=== PATIENT | male | born 1940 | race African-American/Black ===

== ENCOUNTER → 2017-01-30 | Day surgery (SDC) | payer MEDICARE, MEDICAID ==
[~2017-01-30] MED LIST: AMLO1TAB15 PO; ATOR20TA58 PO; IV RINGERS,LACTATED 1000ML 1,000 ML IV SCH; LORA10TA3 PO; METF500T4 PO; PROPOFOL 40 ML IV ONE; TAMS0.4C2 PO
--- NOTE | 2017-01-30 08:51 | PDOC1 ---
HISTORY & PHYSICAL H&P Connor Casas 1940 12/22/2016 11:00 AM 09/17 [place] [facility], [facility] OUR PATIENTS COME FIRST [address] [place] [address] Ph. [phone] Patient: Connor Casas Date of : 1940 Date: 12/22/2016 11:00 AM Visit Type: Consult This 76 year old male presents for H/o colorectal polyp. History of Present Illness: 1. H/o colorectal polyp Prior screening: colonoscopy. Risk Factors: h/o colon polyp. Pertinent negatives include abdominal pain, change in bowel habits, change in stool caliber, constipation, decreased appetite, diarrhea, melena, nausea, rectal bleeding, vomiting, weight gain and weight loss. Additional information: No family history of colon cancer, No family history of Crohn's/colitis, No NSAID/ ASA use and Patient had 3 adenomatous polyp removed 4 yrs ago. INTAKE COMMENTS: Intake Comments: Nurse Note: the pt is here today to schedule a repeat colonoscopy due to polyps in 2012. PROBLEM LIST: Problem Description Onset Date Screening status 01/03/2013 Type 2 diabetes mellitus 05/12/2014 Acute bacterial sinusitis 08/02/2015 BPH (benign prostatic hyperplasia) 09/22/2014 Colon cancer screening 09/22/2014 Impotence of organic origin 01/31/2013 Prostate finding 11/15/2012 Essential hypertension 11/15/2012 Hyperlipidemia 11/15/2012 assisted current use of non-steroidal anti-inflammatories (NSAID) 10/05/2015 Polyarthralgia 10/05/2015 Primary osteoarthritis of right hand 10/05/2015 PAST MEDICAL/SURGICAL HISTORY (Detailed) Disease/disorder Onset Date Management Date Comments Colonic polyps 02/06/2013 colonoscopy with biopsy 02/06/2013 Diabetes Diverticulosis 02/06/2013 Hypertension Internal hemorrhoids 02/06/2013 DIAGNOSTICS HISTORY: Test Ordered Interpretation Result completed COLONOSCOPY AND BIOPSY 01/14/2013 Imp: Colonic polyps, x3, (bx). Diverticulosis. Internal hemorrhoids. BX: 02/06/2013 Test Ordered Ordering Comments Modifier COLONOSCOPY AND BIOPSY 01/14/2013 Medications (Active): Started Medication Directions Instruction Stopped 11/14/2016 atorvastatin 40 mg tablet TAKE 1 TABLET BY MOUTH EVERY DAY 11/14/2016 Exforge HCT 5 mg-160 mg-12.5 mg tablet TAKE 1 TABLET BY MOUTH EVERY DAY 11/14/2016 Flomax 0.4 mg capsule take 1 capsule by oral route every day 1/2 hour following the same meal each day 08/15/2016 loratadine 10 mg tablet take 1 tablet by oral route every day 11/14/2016 metformin 500 mg tablet TAKE 1 TABLET BY MOUTH 2 TIMES EVERY DAY WITH MORNING AND EVENING MEALS 11/14/2016 Mobic 15 mg tablet take 1 tablet by oral route every day 06/19/2016 Nasonex 50 mcg/actuation [place] spray 2 spray by intranasal route every day in each nostril Allergies: Ingredient Reaction Medication Name Comment MORPHINE Rash REVIEW OF SYSTEMS System Neg/Pos Details Constitutional Negative Chills, fever, malaise, weight gain and weight loss. ENMT Negative Sore throat. Eyes Negative Double vision. Respiratory Negative Dyspnea and wheezing. Cardio Negative Chest pain and irregular heartbeat/palpitations. GI Positive See HPI. GI Negative Abdominal pain, change in bowel habits, change in stool caliber, constipation, decreased appetite, diarrhea, melena, nausea, see HPI, rectal bleeding and vomiting. Negative Dysuria and hematuria. Endocrine Negative Cold intolerance and heat intolerance. Psych Negative Anxiety. Integumentary Negative Hives and rash. MS Negative Joint pain. Dayo/Lymph Negative Easy bleeding and easy bruising. Allergic/Immuno Negative Food allergies. VITAL SIGNS Time BP mm/Hg Pulse /min Resp /min Temp F Ht ft Ht in Ht cm Wt lb Wt kg BMI kg/ m2 BSA m2 O2 Sat% 10:58 AM 136/80 78 97.6 5.0 6.00 167.64 183.80 83.370 29.67 1.97 98 Time Measured by 10:58 AM [facility] PHYSICAL EXAM: Exam Findings Details Constitutional Normal Well developed. Eyes Normal Conjunctiva - Right: Normal, Left: Normal. Sclera - Right: Normal, Left: Normal. Nasopharynx Normal Lips/teeth/gums - Normal. Neck Exam Normal Inspection - Normal. Thyroid gland - Normal. Respiratory Normal Inspection - Normal. Auscultation - Normal. Cardiovascular Normal Regular rate and rhythm. No murmurs, gallops, or rubs. Vascular Normal Pulses - Carotids: Normal, Femoral: Normal, Dorsalis pedis: Normal. Abdomen Normal Inspection - Normal. Anterior palpation - No guarding. No abdominal tenderness. No hepatic enlargement. No splenic enlargement. No hernia. No ascites. Skin Normal Inspection - Normal. Extremity Normal No edema. Psychiatric * Oriented to time, place, person and situation. Psychiatric Normal Appropriate mood and effect. The patient was checked out at 11:46 AM by Apoorva Oshea. Assessment/Plan # Detail Type Description 1. Assessment History of colon polyps (Z86.010). Patient Plan schedule colonoscopy at Plan Orders Further diagnostic evaluations ordered today include(s) Colonoscopy to be performed today. He is to schedule a follow-up visit with Billy May MD upon completion of work-up Electronically signed by: Billy May MD 12/22/2016 12:00 PM Document generated by: Billy May 12/22/2016 11:59 AM Scott Hsieh MD, Family Practice; Redd Dixon MD Internal Medicine; Miguel A Jim MD, Internal Medicine; Rishi May MD Internal Medicine; Billy May MD, Gastroenterology; Javier Gardner MD, Rheumatology, S. Kevin Hernández, Physical Medicine/Rehab JLucero Finn APRN ------ 01/30/2017 Patient seen and examined. No change in H&P. BILLY MAY MD January 30, 2017 08:51
--- NOTE | 2017-01-30 09:31 | PDOC4 ---
GI OP Report - Dr. Pina Date/Time DATE: 01/30/17 TIME: 09:29 Attending Physician Billy Pina MD Referring Physician Indications Personal history of colonic polyps Pre-Op See the Anesthesia note for documentation of the administered medications Procedures Colonoscopy+ polypectomy Findings - Three 5 to 10 mm polyps at the hepatic flexure. Resected and retrieved. - Diverticulosis in the sigmoid colon. - The examination was otherwise normal on direct and retroflexion views. Plan - Discharge patient to home. - Patient has a contact number available for emergencies. The signs and symptoms of potential delayed complications were discussed with the patient. Return to normal activities tomorrow. Written discharge instructions were provided to the patient. - Resume regular diet. - Continue present medications. - Await pathology results. - Repeat colonoscopy in 3 - 5 years for surveillance based on pathology results. - Return to my office in 2 weeks. BILLY PINA MD January 30, 2017 09:31
[2017-01-30 09:51] VITALS: BP 139/76
--- NOTE | 2017-02-01 13:27 | PATHOLOGY ---
PATHOLOGY REPORT * * * * * * * * FINAL DIAGNOSIS: Colon biopsies, hepatic flexure polyp:- Tubular adenoma. - Inflamed hyperplastic polyp showing active chronic inflammation with increased eosinophils. COMMENT: Sections of the hepatic flexure biopsies reveal two segments of tubular adenoma and a single segment of inflamed hyperplastic polyp showing active chronic inflammation with increased eosinophils. There is no high grade dysplasia or evidence of malignancy. (JPM:csd; d/t: 02/01/2017) REPORT ELECTRONICALLY SIGNED BY: Juancarlos Cerda M.D. DATE/TIME: 02/01/2017 13:26 * * * * * * * * GROSS PATHOLOGY: Received in formalin labeled "Connor Casas, hepatic flexure polyp," are 3 segments of good soft tissue measuring 1.4 x 0.4 x 0.3 cm in aggregate dimensions and ranging from 0.3 to 0.5 cm in maximum dimension. The specimen is submitted entirely in cassette A1. (DEVIN; 01/31/2017) INITIAL CPT CODE(S): A; 98709 Professional services performed [place] [facility] [place] [address] Technical services performed by [facility] at [address] [place] [address]. SPECIMEN(S) RECEIVED: A.Hepatic flexure polyp CLINICAL HISTORY: History of colon polyps PATIENT: CONNOR CASAS /AGE: 4 1940 (Age: 76) PATIENT #: [id number] ALT CASE #: SPECIMEN COLLECTION DATE: 01/30/2017 SPECIMEN RECEIVED DATE: 01/30/2017 [facility] - [address] [place] [address] - PHONE: [phone] * * * END OF REPORT * * *
== END | disposition home or self-care (01) ==
LOC: ENDOS 07:53
PROVIDERS: ATTEND Internal Medicine Gastroenterology
DX: D12.3 Benign neoplasm of transverse colon (principal); K57.30 Diverticulosis of large intestine without perforation or abscess without bleeding; E78.00 Pure hypercholesterolemia, unspecified; I10 Essential (primary) hypertension; E11.9 Type 2 diabetes mellitus without complications; Z87.39 Personal history of other diseases of the musculoskeletal system and connective tissue; Z86.39 Personal history of other endocrine, nutritional and metabolic disease
CPT/HCPCS: 45385; J2704; 88305

== ENCOUNTER → 2017-03-09 | Outpatient (CLI) | payer MEDICARE, MEDICAID ==
[2017-01-30 09:51] VITALS: BP 139/76
[~2017-03-09] MED LIST changes: +HYDROmorphone 2 MG/ML VIAL IV PRN; +LIDOCAINE 1% 1 ML SYRINGE. ID PRN; +MORPHINE SULFATE 2 MG/ML DISP.SYRIN. IV PRN; +ONDANSETRON PF 4 MG/2 ML VIAL. IV PRN; +PROCHLORPERAZINE 10 MG/2 ML VIAL. IV PRN; -PROPOFOL 40 ML IV ONE; +fentaNYL PF VIAL 100 MCG/2 ML VIAL IV PRN
--- NOTE | 2017-03-09 14:51 | RAD ---
MR CERVICAL SPINE HISTORY: NO PRIORS..PT C/O CHRONIC NECK PAIN WITH OLD NECK INJURY... Technique: Sagittal T2, sagittal STIR, sagittal T1, and axial gradient echo imaging was obtained of the cervical spine. FINDINGS: Detail is degraded by motion artifact. There is reversal of upper cervical lordosis. There is degenerative disc disease at most levels of the cervical spine. There is no gross cord signal abnormality. Visualized soft tissues of the neck are within normal limits for somewhat obscured by motion. At C2-3 there is a central discussed by complex but no mass effect upon the cord. At C3-4 there is advanced disc height loss and retrolisthesis. A disc osteophyte complex causes moderate mass effect upon the cord. There is moderate bilateral foraminal stenosis from facet and uncovertebral hypertrophy. At C4-5 there is advanced disc height loss and retrolisthesis. A disc osteophyte complex is also present and causes severe mass effect upon the cord. There is moderate bilateral foraminal stenosis from facet and uncovertebral hypertrophy. At C5-6 there is advanced disc height loss and retrolisthesis with a disc osteophyte complex that causes severe mass effect upon the cord. There is also severe bilateral foraminal stenosis from facet and uncovertebral hypertrophy. At C6-C7 there is moderate disc height loss and a broad-based disc osteophyte complex causing mild mass effect upon the cord. There is also moderate bilateral foraminal stenosis from facet and uncovertebral hypertrophy. At C7-T1 there is no spinal stenosis. IMPRESSION: There is moderate or severe mass effect upon the cervical cord from the level of C3-4 through C5-C6. Neural foraminal stenosis is noted at all levels. Details as above. Electronically signed by: Galileo Lugo MD (03/09/2017 2:47 PM)
== END | disposition home or self-care (01) ==
LOC: MRI 12:37
PROVIDERS: ATTEND Physical Medicine & Rehabilitation
DX: M48.02 Spinal stenosis, cervical region (principal); M25.78 Osteophyte, vertebrae
CPT/HCPCS: 72141

== ENCOUNTER → 2017-08-03 | Outpatient (CLI) | payer MEDICARE, MEDICAID ==
[2017-01-30 09:51] VITALS: BP 139/76
[~2017-08-03] MED LIST changes: +CONTRAST GIVEN MC PRN; -HYDROmorphone 2 MG/ML VIAL IV PRN; +IOHEXOL 300 MG/ML 100ML VIAL. IV ONE; -IV RINGERS,LACTATED 1000ML 1,000 ML IV SCH; -LIDOCAINE 1% 1 ML SYRINGE. ID PRN; -MORPHINE SULFATE 2 MG/ML DISP.SYRIN. IV PRN; -ONDANSETRON PF 4 MG/2 ML VIAL. IV PRN; -PROCHLORPERAZINE 10 MG/2 ML VIAL. IV PRN; -fentaNYL PF VIAL 100 MCG/2 ML VIAL IV PRN
[2017-08-03 09:36] LABS: CREATININE 1.3 mg/dL (0.7-1.3); GFR 65.1
--- NOTE | 2017-08-03 11:13 | RAD ---
CT of the abdomen and pelvis with and without contrast, 08/03/2017: History: Hematuria, back pain Multidetector CT imaging was performed prior to and following an IV bolus injection of iodinated contrast material. The postcontrast scans included nephrographic phase imaging through the kidneys and excretory phase imaging through the entire urinary tract. 3-D MIP images were reconstructed from the extra triphasic data. No urinary tract calculi are identified. There are 4 simple cysts in the left kidney. The largest of these arises from the lower pole and measures 3.4 cm. There is a similar sized cyst arising from the lower pole of the right kidney. There is no evidence of hydronephrosis. Mild perinephric edema is present bilaterally. The ureters are of normal caliber. The prostate gland is enlarged producing a mildly lobulated impression upon the floor of the urinary bladder. The partially filled urinary bladder is otherwise unremarkable. There is a 2 cm left adrenal nodule which has shown no definite change since 05/08/2015. It demonstrates a low internal CT number on the precontrast scans compatible with a benign adenoma. The right adrenal gland is unremarkable. There is linear scarring and/or atelectasis in the lung bases. There are mild nonspecific groundglass opacities in the left base. No pleural fluid is evident. Scattered coronary artery calcifications are noted. A trace amount pericardial fluid is present. No hepatic abnormality is detected. The gallbladder is unremarkable. The pancreas shows no abnormality. The spleen is of normal size. There is moderate calcific plaquing of the abdominal aorta and its branches without evidence of aneurysm. No abdominal or pelvic adenopathy is seen. The bowel loops are not dilated. The appendix shows no abnormality. No free air or significant free fluid is evident in the abdomen or pelvis. Moderate multilevel degenerative changes are present in the spine. There are moderate degenerative change at both hips. IMPRESSION: 1. No urinary tract calculi are identified. 2. Bilateral renal cysts. 3. Mild bilateral perinephric edema. 4. Stable small left adrenal adenoma. 5. Nonspecific prostatic enlargement. PQRS Compliance Statement: One or more of the following individualized dose reduction techniques were utilized for this examination: 1. Automated exposure control 2. Adjustment of the mA and/or kV according to patient size 3. Use of iterative reconstruction technique
== END | disposition home or self-care (01) ==
LOC: CT 10:32
PROVIDERS: ATTEND Urology
DX: N28.1 Cyst of kidney, acquired (principal); N40.0 Benign prostatic hyperplasia without lower urinary tract symptoms; D35.02 Benign neoplasm of left adrenal gland; R60.9 Edema, unspecified
CPT/HCPCS: 36415; 74178; 82565; 84520; Q9967

== ENCOUNTER → 2018-02-19 | Outpatient (CLI) | payer MEDICARE, MEDICAID ==
[2018-02-19] MEDS: REGADENOSON 0.4 MG/5 ML DISP.SYRIN. IV (10:15)
== END | disposition home or self-care (01) ==
LOC: NM 08:55
DX: R07.89 Other chest pain (principal); I10 Essential (primary) hypertension; I25.2 Old myocardial infarction; E11.9 Type 2 diabetes mellitus without complications; E78.00 Pure hypercholesterolemia, unspecified; R55 Syncope and collapse
CPT/HCPCS: 78452; 93017; 96374; 96375; 96376; A9500; J2785

== ENCOUNTER → 2018-03-04 | Outpatient (CLI) | payer MEDICARE, MEDICAID | END | disposition home or self-care (01) | LOC: ECHO 10:05 | DX: I35.1 Nonrheumatic aortic (valve) insufficiency (principal) | CPT/HCPCS: 93306 ==

== ENCOUNTER → 2018-05-14 | Outpatient (CLI) | payer MEDICARE, MEDICAID ==
[2017-01-30 09:51] VITALS: BP 139/76
[~2018-05-14] MED LIST changes: +CLON0.1T PO; -CONTRAST GIVEN MC PRN; +MELO7.5T5 PO; -METF500T4 PO; +METF500T5 PO; +METO-239 PO; +MOME17SP NS; +POLY17PO29 PO; +PRED50TA PO; +TAMS0.4C97 PO
--- NOTE | 2018-05-14 12:44 | KCIC ---
CT HEAD WO/W CONTRAST History: Dizziness and hypertension, blurred vision Technique: Pre and postcontrast CT imaging was performed of the head. Exposure: One or more of the following individualized dose reduction techniques were utilized for this examination: 1. Automated exposure control 2. Adjustment of the mA and/or kV according to patient size 3. Use of iterative reconstruction technique. Contrast: 95 cc Omnipaque 300 COMPARISON: Noncontrast exam January 06, 2015 Findings: No acute extra-axial or parenchymal hemorrhage is identified. There is no significant intra-axial mass effect, midline shift, or extra-axial fluid collection. The garvey-white differentiation of the major vascular territories is preserved. The ventricles, sulci, and cisterns are within normal limits in size and configuration. There are likely complex mucous retention cysts or polyps of the visualized left maxillary sinus, largest about 1.7 cm. No acute calvarial abnormality is identified. No abnormal intracranial enhancement is identified. Impression: 1. No acute intracranial abnormality is identified. No abnormal intracranial enhancement is identified. 2. There are complex mucous retention cysts versus polyps of the left maxillary sinus. Electronically signed by: Waqar Moore MD (05/14/2018 12:41 PM) [facility]-KCIC1
--- NOTE | 2018-05-14 12:59 | KCIC ---
CTA neck History: Carotid stenosis, dizziness, hypertension, blurred vision Technique: After bolus of intravenous contrast, volumetric CT data acquisition was acquired of the neck. Multiplanar reconstruction images to include MIP and 3-D reconstruction images are submitted. Exposure: One or more of the following individualized dose reduction techniques were utilized for this examination: 1. Automated exposure control 2. Adjustment of the mA and/or kV according to patient size 3. Use of iterative reconstruction technique. Contrast: 95 cc Omnipaque 300 Comparison: Carotid Doppler ultrasound exam May 02, 2018 Any determination of stenosis is based on NASCET criteria. Findings: There are normal anatomic origins of the great vessels. There is calcified plaque of the left subclavian artery origin, also noncalcified plaque proximal left subclavian artery. There is approximate 50% maximal luminal diameter reduction of the proximal left subclavian artery. There is minimal calcified plaque near the left vertebral artery origin. Left cervical vertebral artery is tortuous more proximally. There is probable stenosis of the proximal left cervical vertebral artery with maximal luminal diameter reduction estimated about 60-65%. There is other irregularity of the left cervical vertebral artery. Left vertebral artery does not significantly contribute to the basilar artery. Basilar artery is small in caliber, also more significant stenosis of the mid to distal segment. Intracranial vasculature is not fully evaluated. There is mild wall irregularity of the right cervical vertebral artery without significant stenosis. There is narrowing of the mid right common carotid artery by calcified and noncalcified plaque with maximal luminal diameter reduction estimated about 55-60%. There is medial deviation of the cervical internal carotid arteries bilaterally into the retropharyngeal region somewhat greater on the right, tortuous bilaterally. There is mild calcified plaque of the proximal right internal carotid artery with less than 30% luminal diameter reduction. There is no significant stenosis of the right cervical internal carotid artery. There is mild scattered mostly calcified plaque of the left common carotid artery. There is also mild calcified plaque of the proximal left internal carotid artery without significant stenosis (less than 30% luminal diameter reduction). There is multilevel advanced degenerative disc disease at the C3-4 through C5-6 and to a lesser at C6-7 with multilevel spondylosis at these levels. There is also multilevel cervical spinal stenosis and neural foramina compromise. Maximal spinal stenosis is estimated about 7 mm. There is likely mucus retention cyst left maxillary sinus about 2.8 cm. There is a smaller focus of the right maxillary sinus. Impression: 1. There is multifocal atherosclerotic disease of the cervical arterial vasculature. There is narrowing of the mid right common carotid artery with about 55-60% luminal reduction. There is no significant stenosis of the tortuous cervical internal carotid arteries on either side, medial deviation bilaterally into the retropharyngeal regions. There is stenosis of the mid to distal basilar artery. 2. Not fully evaluated, there is multilevel cervical degenerative disc disease and spondylosis. There is multilevel cervical spinal stenosis estimated about 7 mm. There is multilevel cervical neural foramina compromise. Electronically signed by: Waqar Moore MD (05/14/2018 12:56 PM) [facility]-KCIC1
== END | disposition home or self-care (01) ==
LOC: KCIC CT 09:50
PROVIDERS: ATTEND Internal Medicine
DX: I65.21 Occlusion and stenosis of right carotid artery (principal); M48.02 Spinal stenosis, cervical region; M50.323 Other cervical disc degeneration at C6-C7 level; I10 Essential (primary) hypertension; E11.9 Type 2 diabetes mellitus without complications; E78.00 Pure hypercholesterolemia, unspecified; Z86.39 Personal history of other endocrine, nutritional and metabolic disease; Z87.39 Personal history of other diseases of the musculoskeletal system and connective tissue; Z86.010 Personal history of colon polyps
CPT/HCPCS: 70470; 70498; 82565; Q9967

== ENCOUNTER → 2018-10-11 | Outpatient (CLI) | payer MEDICARE, MEDICAID ==
[2017-01-30 09:51] VITALS: BP 139/76
[~2018-10-11] MED LIST changes: +CONTRAST GIVEN. MC PRN; +IOHEXOL 240 MG/ML 50ML VIAL. PO ONE; +METF500T16 PO; -METF500T5 PO
[2018-10-11 12:13] LABS: CREATININE 1.1 mg/dL (0.7-1.3); GFR 78.7
--- NOTE | 2018-10-11 16:50 | RAD ---
CT study of the pelvis with contrast Clinical indications: Chronic prostatitis. TECHNIQUE: After IV infusion of 75 cc of Omnipaque 300, helical CT scanning of the pelvis was performed. GI contrast was administered per mouth. PQRS compliance Statement One or more of the following individualized dose reduction techniques were utilized for this study: 1. Automated exposure control 2. Adjustment of the mA and/or kV according to patient size 3. Use of iterative reconstruction technique FINDINGS: Prostate gland is enlarged and indents the floor of the urinary bladder. The prostate gland measures 5.4 cm transversely and 5.1 cm in AP dimension. Urinary bladder wall is smooth otherwise and no other filling defect of the urinary bladder is seen. The seminal vesicles are symmetric. No enlarged pelvic lymphadenopathy is evident. No bowel wall thickening or free fluid or free air or mesenteric edema or abscess is seen. No inguinal hernia is evident. No lytic process is seen. Degenerative osteoarthritis of both hip joints is seen. IMPRESSION: Enlarged prostate gland. No prostatic abscess or fluid collection within the prostate gland is seen by CT. Otherwise no other acute abnormality of the pelvis is evident. 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 Electronically signed by: Taurus Noland MD (10/11/2018 4:45 PM) [facility]-[id number]
== END | disposition home or self-care (01) ==
LOC: CT 14:05
PROVIDERS: ATTEND Internal Medicine
DX: N40.0 Benign prostatic hyperplasia without lower urinary tract symptoms (principal); D17.9 Benign lipomatous neoplasm, unspecified; M16.0 Bilateral primary osteoarthritis of hip
CPT/HCPCS: 36415; 74170; 82565; 84520; Q9966; Q9967

== ENCOUNTER → 2020-03-29 | Outpatient (CLI) | payer MEDICARE, MEDICAID ==
[2017-01-30 09:51] VITALS: BP 139/76
[~2020-03-29] MED LIST changes: -CONTRAST GIVEN. MC PRN; -IOHEXOL 240 MG/ML 50ML VIAL. PO ONE; -IOHEXOL 300 MG/ML 100ML VIAL. IV ONE; +NORMAL SALINE IV ONE; +SINCALIDE IV ONE
--- NOTE | 2020-03-29 11:14 | RAD ---
Examination: Hepatobiliary Scan: History: Right upper quadrant pain. Technique: 5 mCi technetium 99m Choletec was administered intravenously and spot views were obtained on the gamma camera for a Nuclear Medicine hepatobiliary scan. 1.5 mcg of CCK drip was administered over 30 minutes and the region of interest was drawn around the gallbladder and gallbladder ejection fraction was calculated. Findings: There is rapid uptake of activity from the blood pool and concentration in the liver. Activity seen in the gallbladder and small bowel. There is a rapid response of the gallbladder to CCK and the gallbladder ejection fraction is 76% which is normal. Impression: Normal hepatobiliary scan. Normal gallbladder function. Electronically signed by: Eligio Martinez MD (03/29/2020 11:11 AM) [id number]
== END | disposition home or self-care (01) ==
LOC: NM 08:06
PROVIDERS: ATTEND Internal Medicine Gastroenterology
DX: R10.13 Epigastric pain (principal); R10.11 Right upper quadrant pain
CPT/HCPCS: 78227; A9537; J2805

== ENCOUNTER → 2020-04-15 | Outpatient (CLI) | payer MEDICARE, MEDICAID ==
[2017-01-30 09:51] VITALS: BP 139/76
[~2020-04-15] MED LIST changes: -NORMAL SALINE IV ONE; -SINCALIDE IV ONE
--- NOTE | 2020-04-15 10:19 | CARD ---
MR#: [id number] Date of Study: 04/15/2020 Ordering Physician: AMY MENA, Referring Physician: AMY MENA, Tech: Jolynn Rodríguez APPROVED REPORT EXAM: Two-dimensional and M-mode echocardiogram with Doppler and color Doppler. Other Information Quality : AverageHR: 56bpm INDICATION Hypertension/HCVD RISK FACTORS Hyperlipidemia Diabetes 2D DIMENSIONS RVDd3.8 (2.9-3.5cm)Left Atrium(2D)3.5 (1.6-4.0cm) IVSd1.3 (0.7-1.1cm)Aortic Root(2D)3.4 (2.0-3.7cm) LVDd4.7 (3.9-5.9cm)LVOT Diameter2.1 (1.8-2.4cm) PWd1.0 (0.7-1.1cm)LVDs3.1 (2.5-4.0cm) FS (%) 34.8 %SV65.7 ml LVEF(%)64.0 (>50%) Aortic Valve AoV Peak Vasile.144.6cm/sAoV VTI35.0cm AO Peak GR.8.4mmHgLVOT Peak Vasile.104.6cm/s LVOT VTI 29.94cmAO Mean GR.4mmHg SYED (VMAX)1.16oz9MWM (VTI)2.99cm2 AI P 1/2 Zmny792md Mitral Valve MV E Uczfqyva21.4cm/sMV DECEL UUEL510hr MV A Tmanqiyj96.6cm/sMV E Mean Gr.1mmHg MV IOI85xpZ/A Ratio1.0 MVA (PHT)3.74cm2 TDI E/Lateral E'11.4E/Medial E'15.6 Tricuspid Valve TR P. Cdbbtiqh827lc/sRAP XSTIJJBV5roZq TR Peak Gr.97ttBzHUMU58scCn Pulmonary Vein S1 Mnvebemi51.8cm/sD2 Qxcvhnvq98.2cm/s PVa zxuqbmgz675yrxq LEFT VENTRICLE The left ventricle is normal size. There is mild to moderate concentric left ventricular hypertrophy. The left ventricular systolic function is normal and the ejection fraction is within normal range. T he Ejection Fraction is 55-60%. There is normal LV segmental wall motion. Transmitral Doppler flow pa ttern is Grade II-pseudonormal filling dynamics. RIGHT VENTRICLE The right ventricle is normal size. There is normal right ventricular wall thickness. The right ventr icular systolic function is normal. ATRIA The left atrium is borderline dilated. The right atrium size is normal. The interatrial septum is int act with no evidence for an atrial septal defect or patent foramen ovale as noted on 2-D or Doppler i maging. AORTIC VALVE The aortic valve is thickened but opens well. Doppler and Color Flow revealed mild aortic regurgitati on. There is no significant aortic valvular stenosis. Calculated aortic valve area is 2.55 cm2 with m aximum pressure gradient of 10 mmHg and mean pressure gradient of 5 mmHg. MITRAL VALVE The mitral valve is thickened but opens well. There is no evidence of mitral valve prolapse. There is no mitral valve stenosis. Doppler and Color Flow revealed no mitral valve regurgitation noted. TRICUSPID VALVE The tricuspid valve is normal in structure and function. Doppler and Color Flow revealed trace tricus pid regurgitation with an estimated PAP of 33 mmHg. There is no tricuspid valve stenosis. PULMONIC VALVE The pulmonary valve is normal in structure and function. Doppler and Color Flow revealed trace pulmon ic valvular regurgitation. There is no pulmonic valvular stenosis. GREAT VESSELS The aortic root is normal in size. The ascending aorta is normal in size. The IVC is normal in size a nd collapses >50% with inspiration. PERICARDIAL EFFUSION There is no evidence of significant pericardial effusion. Critical Notification Critical Value: No <Conclusion> The left ventricular systolic function is normal and the ejection fraction is within normal range. Th e Ejection Fraction is 55-60%. There is normal LV segmental wall motion. Signed by : Cooper Kaplan, Electronically Approved : 04/15/2020 10:19:31
== END | disposition home or self-care (01) ==
LOC: ECHO 08:06
PROVIDERS: ATTEND Internal Medicine Cardiovascular Disease
DX: I35.1 Nonrheumatic aortic (valve) insufficiency (principal); I51.7 Cardiomegaly; I10 Essential (primary) hypertension
CPT/HCPCS: 93306

== ENCOUNTER → 2020-04-23 | Outpatient (CLI) | payer MEDICARE, MEDICAID ==
[2017-01-30 09:51] VITALS: BP 139/76
--- NOTE | 2020-04-23 09:02 | RAD ---
PROCEDURE: SHOULDER BILAT 2+V CLINICAL INDICATION / HISTORY: Reason: PAIN AND PARESTHESIA / Spl. Instructions: / History: . TECHNIQUE: AP internal and external rotation views with a Y- view were obtained of the right and left shoulders. COMPARISON: None FINDINGS: No fracture, dislocation or bone destruction is identified. There are moderate degenerative changes at the right AC joint, and mild degenerative changes at the left AC joint. No calcifications are seen in relation to the rotator cuff insertion. IMPRESSION: Bilateral acromioclavicular degenerative change. No fracture, dislocation or aggressive osseous lesions noted in either shoulder. Electronically signed by: Stan Vail MD (04/23/2020 8:59 AM) [id number]
== END ==
LOC: RAD 13:16
PROVIDERS: ATTEND Internal Medicine
DX: M19.012 Primary osteoarthritis, left shoulder (principal); M19.011 Primary osteoarthritis, right shoulder
CPT/HCPCS: 73030-50

== ENCOUNTER → 2020-04-23 | Outpatient (CLI) | payer MEDICARE, MEDICAID ==
[2017-01-30 09:51] VITALS: BP 139/76
--- NOTE | 2020-04-23 12:41 | RAD ---
EXAM: ABDOMINAL ULTRASOUND. HISTORY: Abdominal pain. COMPARISON: None. FINDINGS: Sonographic evaluation of the abdomen was performed. The liver appears normal in parenchymal echotexture. There are no focal lesions. The spleen is not well visualized. The gallbladder is unremarkable without evidence of stones, wall thickening or pericholecystic fluid. There is no sonographic Leung sign. The common duct measures 4 mm. Pancreas is not well seen. The right kidney measures 9.7 cm. Cortical thickness and echogenicity are preserved. There is no hydronephrosis. Inferior right renal cyst measuring 3.2 cm is noted. The left kidney measures 9.3 cm. Cortical thickness and echogenicity are preserved. There is no hydronephrosis. Multiple renal cortical cysts are present. The largest measures 3 cm in the inferior pole. The visualized portions of the abdominal aorta and inferior vena cava are grossly patent and normal in caliber. IMPRESSION: 1. Bilateral renal cortical cysts with no hydronephrosis. Otherwise unremarkable complete abdomen ultrasound with poor visualization of the pancreas and spleen. Electronically signed by: Stan Vail MD (04/23/2020 12:38 PM) [id number]
== END ==
LOC: US 09:22
PROVIDERS: ATTEND Internal Medicine Gastroenterology
DX: N28.1 Cyst of kidney, acquired (principal)
CPT/HCPCS: 76700

== ENCOUNTER → 2020-05-11 | Outpatient (CLI) | payer MEDICARE, MEDICAID ==
[2017-01-30 09:51] VITALS: BP 139/76
--- NOTE | 2020-05-11 17:33 | RAD ---
Clinical Indications: Bilateral carotid stenosis. Exam : Carotid Duplex with Grayscale Ultrasound and Spectral and Color Doppler Analysis: PQRS Compliance Statement - Stenosis calculations for CT, MR and conventional angiography are based upon measurement of the distal ICA diameter in accordance with the NASCET methodology. Stenosis calculations for carotid ultrasound studies are derived from validated velocity criteria which are known to correlate with the NASCET methodology. Comparison study: Carotid duplex ultrasound of 05/02/2018. Findings: The common, internal and external carotid arteries were examined by grayscale, color and spectral Doppler ultrasound. There is evidence of extensive atherosclerotic disease in the visualized vessels. Eccentric circumferential atherosclerotic plaque in the distal right common carotid artery is again identified with elevated peak systolic velocity to 193 cm/s, compatible with a moderate (50-69 percent) stenosis. This represents an improvement from peak systolic velocity in the distal right common carotid artery reported at 244 cm/s. Velocity elevation in the mid right common carotid artery to 176 cm/s is also seen, compatible with a moderate stenosis. The left mid common carotid artery shows peak systolic velocity elevation to 174 cm/s, compatible with a moderate stenosis. This previously was reported as a peak systolic velocity of 138 cm/s. Lesser velocity elevations in the bilateral proximal internal carotid arteries are seen as enumerated below, likely reflecting mild to moderate (50-69 percent stenoses but closer to 50 percent) stenoses. Flow in both vertebral arteries was antegrade and normal. The following are the velocities and ratios in the carotid arteries on both sides: RIGHT ICA PV: 136cm/sec RIGHT CCA PV: 193cm/sec RIGHT ICA ED: 22cm/sec RIGHT IC/CCPV: 0.77 RIGHT VERTEBRAL: antegrade flow RIGHT % STENOSIS: 50-69 percent LEFT ICA PV: 145cm/sec LEFT CCA PV: 174cm/sec LEFT ICA ED: 27cm/sec LEFT IC/CCPV: 0.83 LEFT VERTEBRAL: antegrade flow LEFT % STENOSIS: 50-69 percent <50% ICA Stenosis: PSV < 125cm/s (EDV < 40cm/s; SVR < 2.0) 50-69% ICA Stenosis: PSV < 125-229cm/s (EDV 40-99cm/s; SVR 2.0-3.9) >70% ICA Stenosis: PSV > 230cm/s (EDV >100cm/s; SVR >4.0) Impression: 1. Improvement in hemodynamically significant stenosis in the right common carotid artery by velocity measurements, now 50-69 percent compared with likely greater than 70 percent previously. 2. Worsening velocity measurements in the left common carotid artery with slight interval increase from peak systolic velocity of 138 cm/s previously to 174 cm/s. 3. Peak systolic velocity in the proximal left ICA has increased from 139 cm/s to 145 cm/s, which although likely not a significant change, merits attention on follow-up. Electronically signed by: Stan Vail MD (05/11/2020 5:30 PM) [id number]
== END | disposition home or self-care (01) ==
LOC: US 14:53
PROVIDERS: ATTEND Internal Medicine
DX: I65.23 Occlusion and stenosis of bilateral carotid arteries (principal)
CPT/HCPCS: 93880

== ENCOUNTER → 2021-03-22 | Outpatient (CLI) | payer MEDICARE, MEDICAID ==
[2017-01-30 09:51] VITALS: BP 139/76
[2021-03-22 09:44] LABS: BASO % 0 % (0-3); EOS # 0.2 x10^3/uL (0.0-0.7); EOS % 3 % (0-3); HEMOGLOBIN 13.3 g/dL (13.0-17.5); LYMPH # 2.5 x10^3/uL (1.0-4.8); LYMPH % 46 % (24-48); MEAN CORPUSCULAR HEMOGLOBIN 27 pg (25-35); MEAN CORPUSCULAR HGB CONC 33 g/dL (31-37); MEAN CORPUSCULAR VOLUME 83 fL (79-100); MONO # 0.4 x10^3/uL (0.0-1.1); MONO % 8 % (0-9); NEUT # 2.3 x10^3/uL (1.8-7.7); NEUT % 42 % (31-73); PLATELET COUNT 223 x10^3/uL (140-400); RED BLOOD COUNT 4.94 x10^6/uL (4.30-5.70); RED CELL DISTRIBUTION WIDTH 15.9 % (11.5-14.5); WHITE BLOOD COUNT 5.4 x10^3/uL (4.0-11.0)
[2021-03-22 09:46] LABS: BILIRUBIN,URINE NEGATIVE (NEG); CLARITY,URINE CLEAR; COLOR,URINE YELLOW; NITRITE,URINE NEGATIVE (NEG); PROTEIN,URINE NEGATIVE (NEG-TRACE)
[2021-03-22 09:53] LABS: RBC,URINE 0 /HPF (0-2); WBC,URINE 0 /HPF (0-4)
[2021-03-22 09:54] LABS: BACTERIA,URINE 0 /HPF (0-FEW)
[2021-03-22 10:11] LABS: ALBUMIN 3.9 g/dL (3.4-5.0); ALBUMIN/GLOBULIN RATIO 1.1 (1.0-1.7); CALCIUM 8.8 mg/dL (8.5-10.1); CREATININE 1.2 mg/dL (0.7-1.3); GFR 70.7; POTASSIUM 3.8 mmol/L (3.5-5.1); TOTAL BILIRUBIN 0.8 mg/dL (0.2-1.0); TOTAL PROTEIN 7.5 g/dL (6.4-8.2)
--- NOTE | 2021-03-22 16:13 | RAD ---
EXAM: XR LUMBAR SPINE 2-3V 03/22/2021 10:12 AM CLINICAL INDICATION: Low back pain COMPARISON: None TECHNIQUE: 3 views of the lumbar spine FINDINGS: There 5 nonrib-bearing lumbar vertebral bodies. No acute fracture. Alignment is normal. Th ere is mild rightward curvature of the lower lumbar spine and straightening of lordosis. There is sev ere disc space narrowing from L2-L3 through L5-S1 with endplate sclerosis and large osteophytes. Mult ilevel facet arthrosis. Moderate to severe osteoporosis of the left hip noted. IMPRESSION: Severe degenerative disc disease from L2-L3 through L5-S1. Electronically signed by: Michelle Medeiros MD (03/22/2021 4:10 PM) [id number]
[2021-03-22 23:12] LABS: CREAT RD UR 122.5 mg/dL (Not Estab.); MICROALB RD UR 40.4 ug/mL (Not Estab.)
[2021-03-23 02:09] LABS: HEMOGLOBIN A1C 6.2 % (4.8-5.6)
== END ==
LOC: RAD 09:06
PROVIDERS: ATTEND Internal Medicine
DX: C61 Malignant neoplasm of prostate (principal); I10 Essential (primary) hypertension; E11.9 Type 2 diabetes mellitus without complications; M54.5 Low back pain
CPT/HCPCS: 72100; 80053; 80061; 81001; 82043; 82570; 83036; 84153; 84443; 85025; G0103

== ENCOUNTER 2021-12-27 07:57 | Emergency (ER) | payer MEDICARE, MEDICAID ==
[~2021-12-27] VITALS: Ht 167.6 cm; Wt 78.6 kg
[~2021-12-27 07:57] MED LIST changes: -MOME17SP NS; +MOME17SP5 NS
[2021-12-27 08:03] VITALS: BP 145/73
[2021-12-27] MEDS ORDERED: CARBAMIDE PEROXIDE 6.5% OTIC SOLUTION 15ML BOTTLE. AD ONE (08:15)
--- NOTE | 2021-12-27 08:15 | PHYS DOC ---
Past Medical History Past Medical History: Diabetes-Type II, High Cholesterol, Hypertension, RI Additional Past Medical Histor: CHRONIC BACK PAIN, ENLARGED HEART Past Surgical History: Other Additional Past Surgical Histo: RIGHT HAND SURGERY Smoking Status: Never Smoker Alcohol Use: None Drug Use: None General Adult EDM: Chief Complaint: OTHER COMPLAINTS HPI: HPI: Patient is a 81 year old male with a history of cerumen impaction comes in with decreased hearing in his right ear. Patient states that he has been to ENT on multiple occasions for the same thing and states that he was taking a shower today and he was unable to hear from the right ear. Denies any dizziness. Denies any fevers or chills. Denies any trauma to the ear Review of Systems: Review of Systems: Constitutional: Denies fever or chills. [] Eyes: Denies change in visual acuity. [] HENT: Decreased hearing denies nasal congestion or sore throat. [] Respiratory: Denies cough or shortness of breath. [] Cardiovascular: Denies chest pain or edema. [] GI: Denies abdominal pain, nausea, vomiting, bloody stools or diarrhea. [] : Denies dysuria. [] Musculoskeletal: Denies back pain or joint pain. [] Integument: Denies rash. [] Neurologic: Denies headache, focal weakness or sensory changes. [] Endocrine: Denies polyuria or polydipsia. [] Lymphatic: Denies swollen glands. [] Psychiatric: Denies depression or anxiety. [] Heart Score: C/O Chest Pain: No Risk Factors: Risk Factors: DM, Current or recent (<one month) smoker, HTN, HLP, family history of CAD, obesity. Risk Scores: Score 0 - 3: 2.5% MACE over next 6 weeks - Discharge Home Score 4 - 6: 20.3% MACE over next 6 weeks - Admit for Clinical Observation Score 7 - 10: 72.7% MACE over next 6 weeks - Early Invasive Strategies Current Medications: Current Medications Medications (Trade) Dose Ordered Sig/Enrique Start Time Stop Time Status Last Admin Dose Admin Carbamide Peroxide (Debrox) 5 drop 1X ONCE 12/27/21 08:15 12/27/21 08:16 UNV Allergies: Allergies: Allergies Coded Allergies Type Severity Reaction Last Updated Verified morphine Allergy Intermediate RASH, HIVES 12/27/21 Yes Physical Exam: PE: Constitutional: Well developed, well nourished, no acute distress, non-toxic appearance. [] HENT: Moderate cerumen burden on the right ear canal. Not fully occluded. Normocephalic, atraumatic, bilateral external ears normal, oropharynx moist, no oral exudates, nose normal. [] Eyes: PERRLA, EOMI, conjunctiva normal, no discharge. [] Neck: Normal range of motion, no tenderness, supple, no stridor. [] Cardiovascular:Heart rate regular rhythm, no murmur [] Lungs & Thorax: Bilateral breath sounds clear to auscultation [] Abdomen: Bowel sounds normal, soft, no tenderness, no masses, no pulsatile masses. [] Skin: Warm, dry, no erythema, no rash. [] Back: No tenderness, no CVA tenderness. [] Extremities: No tenderness, no cyanosis, no clubbing, ROM intact, no edema. [] Neurologic: Alert and oriented X 3, normal motor function, normal sensory function, no focal deficits noted. [] Psychologic: Affect normal, judgement normal, mood normal. [] EKG: EKG: [] Radiology/Procedures: Radiology/Procedures: [] Course & Med Decision Making: Course & Med Decision Making Pertinent Labs and Imaging studies reviewed. (See chart for details) [] Cerumen removed patient tolerated well Dragon Disclaimer: Kacie Disclaimer: This electronic medical record was generated, in whole or in part, using a voice recognition dictation system. Cerumen Removal Indication: [INDICATION:] Cerumen impaction Procedure: After placing the patient's head in the appropriate position, the patient's right] ear canal was [Debrox and irrigation:] until cerumen was removed The patient tolerated the procedure patient tolerated:]. Complications: Departure Departure Referrals: GAUDENCIO VILLALPANDO MD (PCP) JET TERRELL DO Dec 27, 2021 08:15
== END 2021-12-27 09:22 | disposition home or self-care (01) ==
LOC: ER 07:57
DX: H61.21 Impacted cerumen, right ear (principal); E11.9 Type 2 diabetes mellitus without complications; E78.00 Pure hypercholesterolemia, unspecified; I10 Essential (primary) hypertension; I25.2 Old myocardial infarction; G89.29 Other chronic pain; Z88.5 Allergy status to narcotic agent
CPT/HCPCS: 69209; 99282